=== PATIENT | female | born 1995 | race Caucasian/White ===

== ENCOUNTER 2021-02-26 01:03 | Emergency (ER) | payer OTHER ==
[2021-02-26 01:38] LABS: HEMOGLOBIN 9.6 gm/dl (12.3-15.3); RED BLOOD COUNT 3.49 M/UL (4.00-5.10); WHITE BLOOD COUNT 8.1 K/UL (4.5-11.0)
[2021-02-26 02:00] LABS: BUN/CREATININE RATIO 11 (0-10)
[2021-02-26] MEDS ORDERED: OMNICEF 300 MG300 MG PO (04:43)
[2021-02-26] MEDS ORDERED: K-DUR TAB 10 M10 MEQ PO (04:49)
[2021-02-26] MEDS ORDERED: BMP Blood Test (04:50)
== END 2021-02-26 05:30 | disposition home or self-care (01) ==
LOC: ER1 01:03
PROVIDERS: Family Medicine
DX: N12 Tubulo-interstitial nephritis, not specified as acute or chronic (principal); F17.210 Nicotine dependence, cigarettes, uncomplicated
CPT/HCPCS: 71045; 80053; 81001; 83605; 83735; 84100; 85025; 87040; 87077; 87086; 87186; 96374; 99284; J0696; Q9967